=== PATIENT | female | born 2000 | race African-American/Black ===

== ENCOUNTER 2018-05-23 20:45 | Emergency (ER) | payer SELFPAY ==
[2018-05-23 20:51] VITALS: BP 124/72; PULSE 97; TEMP 98; BMI 17.4
--- NOTE | 2018-05-23 21:06 | PDOC ---
History of Present Illness - General Chief Complaint: Cold Symptoms Stated Complaint: Pain Time Seen by Provider: 05/23/18 21:00 History Source: Patient Exam Limitations: No Limitations - History of Present Illness Initial Comments: Patient is a 18-year-old female who states over the past 2 week she has had a dry nonproductive cough. She denies fever, denies chills. Denies recent international travel or sick contacts. She states that she now has pain upon palpation to the anterior and posterior chest; denies injury or trauma. She denies hemoptysis She describes the pain as a throb, worse with palpation rates it at a 3 out of 10. Patient denies attempting [id number] analgesics and denies any relieving factors. 05/23/18 21:03 Past History - Travel Traveled outside of the country in the last 30 days: No Close contact w/someone who was outside of country & ill: No - Past Medical History Allergies/Adverse Reactions: Allergies Allergy/AdvReac Type Severity Reaction Status Date / Time No Known Allergies Allergy Verified 09/04/14 10:48 Home Medications: Ambulatory Orders NK [No Known Home Medication] 05/23/18 Cancer: Yes COPD: Yes Other medical history: Scoliosis - Suicide/Smoking/Psychosocial Hx Smoking Status: No Smoking History: Unknown if ever smoked Have you smoked in the past 12 months: No Number of Cigarettes Smoked Daily: 0 Information on smoking cessation initiated: No Hx Alcohol Use: No Drug/Substance Use Hx: No Substance Use Type: None Review of Systems - Review of Systems Able to Perform ROS?: Yes Constitutional: No: Chills, Fever Respiratory: Yes: Cough. No: Shortness of Breath, Wheezing, Productive cough Cardiac (ROS): No: Chest Pain All Other Systems: Reviewed and Negative *Physical Exam - Vital Signs Last Vital Signs Temp Pulse Resp BP Pulse Ox 98.0 F 97 H 16 124/72 100 05/23/18 20:48 05/23/18 20:48 05/23/18 20:48 05/23/18 20:48 05/23/18 20:48 - Physical Exam Comments: Constitutional: VS stated, pt appears in no apparent distress; sitting in chair. Skin: Warm and dry. Intact, no lesions or excoriations. Head: Normocephalic; atraumatic Eyes: conjunctiva pink without injection or discharge. Ears: No tenderness present. Canals without injection or discharge; TM clear, no retractions or bulging. Nose: Patent, mucosa pink. No drainage. Throat: Oropharynx with pink and moist mucosa. Dentition good. No pharyngeal edema; erythema or exudate. Tongue normal, no fasciculations. Airway Patent. Hypoglossal area is soft. Uvula is midline. No trismus. Chest: Normal AP diameter, symmetrical excursions bilaterally, no retractions or bulging of the intercostal spaces. Pt has pain upon palpation. Lungs: Bilateral breath sounds clear upon auscultation. No adventitious breath sounds. Heart: Regular rate and rhythm, Musculoskeletal: Moves all extremities without difficulty. Neurologic: Awake, alert. Conversation fluent. Psych: Appropriate affect. 05/23/18 21:04 Moderate Sedation - Procedure Monitoring Vital Signs: Procedure Monitoring Vital Signs Temperature 98.0 F 05/23/18 20:48 Pulse Rate 97 H 05/23/18 20:48 Respiratory Rate 16 05/23/18 20:48 Blood Pressure 124/72 05/23/18 20:48 O2 Sat by Pulse Oximetry (%) 100 05/23/18 20:48 *DC/Admit/Observation/Transfer Diagnosis at time of Disposition: Costochondritis - Discharge Dispostion Disposition: HOME Condition at time of disposition: Stable Decision to Admit order: No - Referrals Referrals: Samantha Jeffers [Primary Care Provider] - - Patient Instructions Printed Discharge Instructions: DI for Costochondritis Additional Instructions: Ibuprofen 600 mg every 6 hours. F/U with your PCP. - Post Discharge Activity
== END 2018-05-23 21:23 | disposition home or self-care (01) ==
LOC: JERFT 20:45
DX: M94.0 Chondrocostal junction syndrome [Tietze] (principal); J44.9 Chronic obstructive pulmonary disease, unspecified
CPT/HCPCS: 99281-25

== ENCOUNTER 2020-07-14 14:51 | Emergency (ER) | payer OTHER ==
[2020-07-14 15:13] VITALS: BP 122/66; PULSE 90; TEMP 97.9; BMI 20.7
[2020-07-14] MEDS ORDERED: ACETAMINOPHEN 325 MG TABLET (FP) PO ONE (16:04)
[2020-07-14] MEDS ORDERED: ONDANSETRON 4 MG/2 ML VIAL IVPUSH ONE (16:04)
[2020-07-14] MEDS ORDERED: SODIUM CHLORIDE 0.9% 500 ML INFUS.BAG IV ONE (16:09)
[2020-07-14] MEDS ORDERED: ACETAMINOPHEN 325 MG TABLET (FP) ONE ×2 (16:36→16:42)
[2020-07-14] MEDS ORDERED: ONDANSETRON 4 MG/2 ML VIAL ONE ×2 (16:42→16:48)
[2020-07-14 16:48] LABS: BASO % 0.2 % (0-2.0); EOS % 1.1 % (0-4.5); HEMATOCRIT 31.6 % (32.4-45.2); HEMOGLOBIN 10.3 GM/dL (10.7-15.3); MCH 24.9 pg (25.7-33.7); MCHC 32.7 g/dl (32.0-36.0); MEAN CELL VOLUME 76.3 fl (80-96); MEAN PLT VOLUME 8.5 fl (7.5-11.1); MONO % 7.2 % (3.8-10.2); NEUT % 71.5 % (42.8-82.8); PLATELET COUNT 231 K/MM3 (134-434); RBC 4.14 M/mm3 (3.60-5.2); RDW 15.9 % (11.6-15.6); WHITE BLOOD COUNT 7.9 K/mm3 (4.0-10.0)
[2020-07-14 16:56] LABS: INR 1.09 (0.83-1.09); PROTHROMBIN TIME (PATIENT) 13.4 SEC (9.7-13.0)
[2020-07-14 16:59] LABS: ACTIVATED PTT 29.2 SECONDS (25.2-36.5)
[2020-07-14 17:07] LABS: POTASSIUM 3.8 mmol/L (3.5-5.1)
[2020-07-14 17:08] LABS: BLOOD UREA NITROGEN 6.2 mg/dL (7-18)
[2020-07-14 17:11] LABS: CREATININE 0.5 mg/dL (0.55-1.3)
[2020-07-14 17:35] LABS: PH,URINE 6.5 (5.0-8.0); URINE APPEARANCE CLEAR; URINE BILIRUBIN NEGATIVE (NEGATIVE); URINE COLOR YELLOW; URINE GLUCOSE (UA) NEGATIVE (NEGATIVE); URINE KETONE NEGATIVE (NEGATIVE); URINE LEUK ESTERASE NEGATIVE (NEGATIVE); URINE NITRITE NEGATIVE (NEGATIVE); URINE PROTEIN NEGATIVE (NEGATIVE); URINE UROBILINOGEN 0.2 mg/dL (0.2-1.0)
== END 2020-07-14 18:44 | disposition home or self-care (01) ==
LOC: JER 14:51
PROC: 3E033GC Introduction of Other Therapeutic Substance into Peripheral Vein, Percutaneous Approach (ICD-10-PCS; principal; 2020-07-14)
DX: O21.9 Vomiting of pregnancy, unspecified (principal); Z3A.09 9 weeks gestation of pregnancy
CPT/HCPCS: 36415; 76817-TC; 80048; 81003; 84702; 85025; 85610; 85730; 86850; 86900; 86901; 87086; 99284-25